=== PATIENT | male | born 1975 | race Caucasian/White ===

== ENCOUNTER 2018-01-05 23:19 | Emergency (ER) | payer SELFPAY ==
[~2018-01-05] VITALS: Ht 180.3 cm; Wt 136.1 kg
[2018-01-05 23:22] VITALS: BP 180/119
--- NOTE | 2018-01-05 23:26 | NUR ---
AMBULATED TO ED BED 12 REPOR TTO WILMA, PT C/O LACERATION S/P HIT WITH DOOR A FEW HOURS AGO. 05/02 PAIN. BLEEDING CONTROLLED, NO OTHER COMPLAINTS.
--- NOTE | 2018-01-05 23:37 | NUR ---
Dr. Dimas evaluating patient at bedside.
[2018-01-05] MEDS ORDERED: LIDOCAINE 1% 500 MG/50 ML VIAL INJ SCH (23:40)
--- NOTE | 2018-01-05 23:41 | NUR ---
PT BIB SELF FOR LACERTAION TO RT EYEBROW. PT STATES HE HIT HIS HEAD ON A DOOR. PT DENIES LOC, OR VISUAL CHANGES. BLEEDING CONTROLLED. REDNESS AND SWELLING NOTED. PT SITTING IN BEDSIDE CHAIR, ON PHONE, APPEARS TO BE IN NO ACUTE DISTRESS.
[2018-01-05] MEDS ORDERED: LIDOCAINE MPF 1% - 5 mL VIAL 5 ML ONE (23:44)
[2018-01-06] MEDS ORDERED: BACITRACIN OINT 500 UNITS/GM PKT TP ONE ×2 (00:03)
--- NOTE | 2018-01-06 00:03 | NUR ---
Patient discharged with v/s stable. Written and verbal after care instructions given and explained. Patient verbalized understanding. Ambulatory with steady gait. All questions addressed prior to discharge. Advised to follow up with PMD.
[2018-01-06 00:04] VITALS: BP 175/112
== END 2018-01-06 00:03 | disposition home or self-care (01) ==
LOC: MED 23:19
DX: S01.111A Laceration without foreign body of right eyelid and periocular area, initial encounter (principal); I10 Essential (primary) hypertension; W22.8XXA Striking against or struck by other objects, initial encounter; Y93.89 Activity, other specified; Y92.89 Other specified places as the place of occurrence of the external cause; Y99.8 Other external cause status
CPT/HCPCS: 12013; 99283; J2001; 99282